=== PATIENT | female | born 1995 | race African-American/Black ===

== ENCOUNTER 2019-06-21 22:42 | Inpatient (IN) | payer OTHER ==
[~2019-06-21] VITALS: Ht 152.4 cm; Wt 145.1 kg
[~2019-06-21 22:42] MED LIST: BACTRIM-DS1 EA ORAL; CIPROFLOXACIN500 M2 ORAL; DOXYCYCLINE MO100 MG ORAL; KETOCONAZOLE120 ML TP; NKM
--- NOTE | 2019-06-21 22:51 | NUR ---
ED Nurse Note: pt walked c/o vaginal bleeding x 3 wks and burning sensation when urinating. Pt is AO x 4times, VSS, on room air no distress. KARLAD seen Pt at bedside.
[2019-06-21 22:57] VITALS: BP 128/89
--- NOTE | 2019-06-21 23:14 | Emergency Room Report ---
History of Present Illness General Chief Complaint: Vaginal Source: Patient Present Illness HPI This is a 23-year-old female with history of severe anemia secondary to dysfunctional uterine bleeding. She had blood transfusion several times. Latest was 2 months ago. She has heavy bleeding for last 2 to 3 weeks. Passing clots. Also with some dysuria for the last few days. She had ultrasound in the past that was negative for fibroids. She had a ruptured ovarian cyst in the past. She refused to take control pill because she "does not believe in it." No pain. Has cramps. Similar symptom in the past. Does complain of some weakness with walking. Allergies: Coded Allergies: No Known Allergies (Unverified , 02/28/14) Patient History Past Medical History: see triage record, old chart reviewed Past Surgical History: none Pertinent Family History: none Social History: Denies: smoking Last Menstrual Period: unk Now: No Immunizations: other Reviewed Nursing Documentation: PMH: Agreed; PSxH: Agreed Nursing Documentation-PMH Past Medical History: No Stated History Hx Cardiac Problems: No Hx Cancer: No Hx Gastrointestinal Problems: No Hx Neurological Problems: No Review of Systems Constitutional: Reports: weakness Eye: Denies: eye pain, blurred vision ENT: Denies: ear pain, nose congestion, throat swelling Respiratory: Denies: cough, shortness of breath Cardiovascular: Denies: chest pain, palpitations Gastrointestinal: Denies: abdominal pain, diarrhea, nausea, vomiting Genitourinary: Reports: vag bleed/dc Musculoskeletal: Denies: back pain, joint pain Skin: Denies: rash Neurological: Denies: headache, numbness Endocrine: Denies: increased thirst, increased urine Hematologic/Lymphatic: Denies: easy bruising All Other Systems: negative except mentioned in HPI Physical Exam Vital Signs Date Time Temp Pulse Resp B/P (MAP) Pulse Ox O2 Delivery O2 Flow Rate FiO2 06/21/19 22:44 99.9 98 18 119/71 (87) 96 Room Air Vitals normal Sp02 EP Interpretation: reviewed, normal General Appearance: well appearing, no apparent distress, alert, obese Head: normocephalic, atraumatic Eyes: bilateral eye PERRL, bilateral eye EOMI, bilateral eye conjunctivae pale ENT: hearing grossly normal, normal pharynx Neck: full range of motion, supple, no meningismus Respiratory: chest non-tender, lungs clear, normal breath sounds Cardiovascular #1: regular rate, rhythm, no murmur Gastrointestinal: normal bowel sounds, non tender, no mass, no organomegaly, no bruit, non-distended Musculoskeletal: back normal, gait/station normal, normal range of motion Psychiatric: mood/affect normal Procedures Critical Care Time Critical Care Time Critical care is mandated in this patient who presented with severe anemia requiring blood transfusion. Patient require my urgent intervention to attenuate the risks of metabolic collapse which may lead to cardiovascular collapse and . Critical care time is 35 minutes excluding any reportable procedure. Critical care time included evaluation, multiple reevaluation, looking at old charts, interpreting laboratory and diagnostic data, discussing case with patient and family and consultants, and charting. Medical Decision Making Diagnostic Impression: Primary Impression: Anemia Qualified Codes: D50.0 - Iron deficiency anemia secondary to blood loss ( chronic) Additional Impressions: Menorrhagia Qualified Codes: N92.1 - Excessive and frequent menstruation with irregular cycle Dysfunctional uterine bleeding ER Course Patient with severe anemia secondary to dysfunction urinating and menorrhagia. She has been transfused several times in the past. When I discussed being on control pills, she said she does not believe in them. She said that no evidence of any fibroids on several ultrasounds. Most recently 2 months ago at [facility]. Vital signs are stable but she will need blood transfusion. No evidence of any active bleeding than vaginal bleeding. I contacted Dr. Dawkins for admission. Rhythm Strip Diag. Results EP Interpretation: yes Rate: 97 Rhythm: NSR, no PVC's, no ectopy Last Vital Signs Date Time Temp Pulse Resp B/P (MAP) Pulse Ox O2 Delivery O2 Flow Rate FiO2 06/21/19 22:57 98.9 89 18 128/89 98 Room Air Status: improved Disposition: ADMITTED INPATIENT Condition: Serious Referrals: NON PHYSICIAN (PCP) Yonny Simeon MD Jun 21, 2019 23:14
--- NOTE | 2019-06-21 23:30 | NUR ---
ED Nurse Note: Blood sample sent to lab.
[2019-06-21 23:52] LABS: ANION GAP 6 mmol/L (5-15); BLOOD UREA NITROGEN 10 mg/dL (7-18); CALCIUM 8.3 MG/DL (8.5-10.1); CARBON DIOXIDE 26 MMOL/L (21-32); CHLORIDE 105 MMOL/L (98-107); CREATININE 0.9 MG/DL (0.55-1.30); POTASSIUM 3.8 MMOL/L (3.5-5.1); SODIUM 137 MMOL/L (136-145)
[2019-06-21 23:53] LABS: HEMATOCRIT 18.2 % (37.0-47.0); MEAN CORPUSCULAR VOLUME 69 FL (80-99); PLATELET COUNT 441 K/UL (150-450); RED BLOOD COUNT 2.63 M/UL (4.20-5.40); RED CELL DISTRIBUTION WIDTH 16.1 % (11.6-14.8); WHITE BLOOD COUNT 13.4 K/UL (4.8-10.8)
[2019-06-21 23:59] LABS: HEMOGLOBIN 5.7 G/DL (12.0-16.0)
--- NOTE | 2019-06-22 00:37 | NUR ---
ED Nurse Note: Snack food provided.
--- NOTE | 2019-06-22 00:59 | NUR ---
ED Nurse Note: Urine sample sent to lab.
--- NOTE | 2019-06-22 01:04 | NUR ---
ED Nurse Note: Blood transfusion started, Pt VSS.
[2019-06-22 01:05] VITALS: BP 129/65
[2019-06-22 01:06] LABS: BILIRUBIN, URINE NEGATIVE (NEGATIVE); GLUCOSE, URINE (UA) NEGATIVE (NEGATIVE); KETONES,URINE 1+ (NEGATIVE); NITRITE,URINE POSITIVE (NEGATIVE); PH,URINE 5 (4.5-8.0); PROTEIN,URINE 3+ (NEGATIVE); UROBILINOGEN,URINE NORMAL MG/DL (0.0-1.0)
--- NOTE | 2019-06-22 01:15 | NUR ---
ED Nurse Note: Report given to floor RN Samm Pt belongings and skin condition report to RN. Pt will admit room 319-1 after 1st unit RBC transfusion done.
[2019-06-22 01:19] VITALS: BP 99/57
[2019-06-22 01:20] LABS: APPEARANCE,URINE CLOUDY; COLOR,URINE RED; LEUKOCYTE ESTERASE ,URINE 1+ (NEGATIVE)
[2019-06-22 02:16] VITALS: BP 106/61
--- NOTE | 2019-06-22 02:19 | NUR ---
ED Nurse Note: Pt admit room 319-1, 1st blood transfusion still going on, 40% remain. Pt and bedside report given to floor RN.
[2019-06-22 04:00] VITALS: BP 96/62
--- NOTE | 2019-06-22 07:34 | NUR ---
HAND-OFF: Report given to KAYLI Beckford. Patient resting in stable condition.
--- NOTE | 2019-06-22 07:45 | NUR ---
NURSE NOTES: Received report from KAYLI Quijano. Rounding done with outgoing nurse. Pt asleep and 2nd unit of blood transfusion is running at this time. Bed in lowest position, call light within reach. Will continue to monitior.
[2019-06-22] MEDS ORDERED: Miralax 17gm pkt ORAL PRN (08:00)
[2019-06-22] MEDS ORDERED: Zolpidem 5mg tab ORAL PRN (08:00)
[2019-06-22] MEDS ORDERED: LORazepam Inj 2mg/ml 1ml IV PRN (08:00)
[2019-06-22] MEDS ORDERED: Morphine Sulfate 2mg/ml Inj(IV/IM USE ONLY) IVP PRN (08:00)
[2019-06-22 08:10] VITALS: BP 104/59
--- NOTE | 2019-06-22 09:37 | NUR ---
*-* NO INSURANCE INFORMTION IN THE BAR UNABLE TO SEND CLINICALS OR REVIEWS *-*
--- NOTE | 2019-06-22 10:46 | NUR ---
NURSE NOTES: Patient stat "I feels better after blood transfusion, I want to leave right now. Remove IV right now so I can go home". Dr. Dawkins was notified and said we need to have CBC results before pt goes home. Explained that we need CBC results before pt goes home but pt still wants to leave right away.
--- NOTE | 2019-06-22 11:00 | NUR ---
NURSE NOTES: Patient signed AMA form. Removed IV access and arm band. Explained pt go to ER if she has continent vaginal bleeding. Verbalized understanding. Discharged by herself in stable condition.
[2019-06-22 11:27] LABS: ANION GAP 9 mmol/L (5-15); BLOOD UREA NITROGEN 8 mg/dL (7-18); CALCIUM 8.3 MG/DL (8.5-10.1); CARBON DIOXIDE 24 MMOL/L (21-32); CHLORIDE 108 MMOL/L (98-107); CREATININE 0.8 MG/DL (0.55-1.30); POTASSIUM 4.1 MMOL/L (3.5-5.1); SODIUM 140 MMOL/L (136-145)
[2019-06-22 11:31] LABS: HEMATOCRIT 23.9 % (37.0-47.0); HEMOGLOBIN 7.5 G/DL (12.0-16.0); MEAN CORPUSCULAR VOLUME 75 FL (80-99); PLATELET COUNT 397 K/UL (150-450); RED CELL DISTRIBUTION WIDTH 17.9 % (11.6-14.8); WHITE BLOOD COUNT 11.5 K/UL (4.8-10.8)
--- NOTE | 2019-06-22 13:03 | NUR ---
INSURANCE CLINICALS FAXED TO [facility] NCM: MOLLY P- [phone] F- [phone]....REVIEW/CLINICAL
--- NOTE | 2019-06-22 13:04 | NUR ---
CASE MANAGEMENT: INITIAL REVIEW 23 YO F PRESENTED TO OUR ED FROM HOME CC: VAGINAL BLEEDING. VAGINAL BURNING SENSATION ON URINATION. PMHx: NONE STATED SI:ANEMIA. BLOOD TRANSFUSION. T 99.9 HR 98 RR 18 B/P 119/71 SATS 96% ON RA WBC 13.4 HGB 5.7 HCT 18.2 GLU 109 CA 8.3 UA (+UTI) IS: NS BOLUS X1 PATIENT ADMITTED TO MED/SURG 06/21/2019 @ 0740 DCP: PATIENT TO BE DISCHARGED TO HOME ONCE MEDICALLY CLEARED. PLAN OF CARE: TRANSFUSE Addendum: 06/22/19 at 1316 by Carlee Valdez CM INTERQUAL MET
--- NOTE | 2019-06-22 15:55 | Consultation ---
History of Present Illness General Chief Complaint: Vaginal Present Illness Allergies: Coded Allergies: No Known Allergies (Unverified , 02/28/14) Medication History Scheduled No Known Medications* (NKM - No Known Medications*), 0 ., (Reported) Patient History Healthcare decision maker Resuscitation status Full Code Advanced Directive on File Physical Exam Last 24 Hour Vital Signs Date Time Temp Pulse Resp B/P (MAP) Pulse Ox O2 Delivery O2 Flow Rate FiO2 06/22/19 09:00 Room Air 06/22/19 08:10 98.1 80 20 104/59 (74) 99 06/22/19 04:00 97.9 82 18 96/62 (73) 100 06/22/19 02:38 Room Air 06/22/19 02:17 98.5 97 18 99/57 100 Room Air 06/22/19 02:16 98.0 98 17 106/61 (76) 96 06/22/19 01:19 98.5 97 18 99/57 100 Room Air 06/22/19 01:05 97.7 101 18 129/65 100 Room Air 06/21/19 22:57 98.9 89 18 128/89 98 Room Air 06/21/19 22:44 99.9 98 18 119/71 (87) 96 Room Air Intake and Output 06/21/19 06/22/19 19:00 07:00 Intake Total 1070 ml Balance 1070 ml Intake Oral 370 ml Blood Product 700 ml # Voids 2 # Bowel Movements 1 # Sanitary Pads 1 Laboratory Tests Test 06/21/19 23:25 06/22/19 00:50 06/22/19 10:30 White Blood Count 13.4 K/UL (4.8-10.8) H 11.5 K/UL (4.8-10.8) H Red Blood Count 2.63 M/UL (4.20-5.40) L 3.20 M/UL (4.20-5.40) L Hemoglobin 5.7 G/DL (12.0-16.0) *L 7.5 G/DL (12.0-16.0) #L Hematocrit 18.2 % (37.0-47.0) L 23.9 % (37.0-47.0) #L Mean Corpuscular Volume 69 FL (80-99) L 75 FL (80-99) #L Mean Corpuscular Hemoglobin 21.6 PG (27.0-31.0) L 23.3 PG (27.0-31.0) L Mean Corpuscular Hemoglobin Concent 31.2 G/DL (32.0-36.0) L 31.2 G/DL (32.0-36.0) L Red Cell Distribution Width 16.1 % (11.6-14.8) H 17.9 % (11.6-14.8) H Platelet Count 441 K/UL (150-450) 397 K/UL (150-450) Mean Platelet Volume 6.4 FL (6.5-10.1) L 6.6 FL (6.5-10.1) Neutrophils (%) (Auto) % (45.0-75.0) % (45.0-75.0) Lymphocytes (%) (Auto) % (20.0-45.0) % (20.0-45.0) Monocytes (%) (Auto) % (1.0-10.0) % (1.0-10.0) Eosinophils (%) (Auto) % (0.0-3.0) % (0.0-3.0) Basophils (%) (Auto) % (0.0-2.0) % (0.0-2.0) Sodium Level 137 MMOL/L (136-145) 140 MMOL/L (136-145) Potassium Level 3.8 MMOL/L (3.5-5.1) 4.1 MMOL/L (3.5-5.1) Chloride Level 105 MMOL/L (98-107) 108 MMOL/L (98-107) H Carbon Dioxide Level 26 MMOL/L (21-32) 24 MMOL/L (21-32) Anion Gap 6 mmol/L (5-15) 9 mmol/L (5-15) Blood Urea Nitrogen 10 mg/dL (7-18) 8 mg/dL (7-18) Creatinine 0.9 MG/DL (0.55-1.30) 0.8 MG/DL (0.55-1.30) Estimat Glomerular Filtration Rate > 60 mL/min (>60) > 60 mL/min (>60) Glucose Level 109 MG/DL (74-106) H 96 MG/DL (74-106) Calcium Level 8.3 MG/DL (8.5-10.1) L 8.3 MG/DL (8.5-10.1) L Urine Color Red Urine Appearance Cloudy Urine pH 5 (4.5-8.0) Urine Specific [place] 1.020 (1.005-1.035) Urine Protein 3+ (NEGATIVE) H Urine Glucose (UA) Negative (NEGATIVE) Urine Ketones 1+ (NEGATIVE) H Urine Blood 5+ (NEGATIVE) H Urine Nitrite Positive (NEGATIVE) H Urine Bilirubin Negative (NEGATIVE) Urine Urobilinogen Normal MG/DL (0.0-1.0) Urine Leukocyte Esterase 1+ (NEGATIVE) H Urine RBC Tntc /HPF (0 - 2) H Urine WBC 2-4 /HPF (0 - 2) Urine Squamous Epithelial Cells Few /LPF (NONE/OCC) Urine Bacteria Few /HPF (NONE) Urine HCG, Qualitative Negative (NEGATIVE) Differential Total Cells Counted 100 Neutrophils % (Manual) 77 % (45-75) H Lymphocytes % (Manual) 18 % (20-45) L Monocytes % (Manual) 5 % (1-10) Eosinophils % (Manual) 0 % (0-3) Basophils % (Manual) 0 % (0-2) Band Neutrophils 0 % (0-8) Platelet Estimate Adequate Platelet Morphology Normal Hypochromasia 2+ Anisocytosis 1+ Microcytosis 1+ Height (Feet): 5 Height (Inches): 0.00 Weight (Pounds): 320 Assessment/Plan Assessment/Plan: Hematology Consultation ANIA MD: Elizabeth Dawkins DOS: 06/22/19 Chief Complaint: Vaginal HPI WAS SEEN BEFORE SIGNOUT AMA This is a 23-year-old female with history of severe anemia secondary to dysfunctional uterine bleeding. She had blood transfusion several times. Latest was 2 months ago. She has heavy bleeding for last 2 to 3 weeks. Passing clots. Also with some dysuria for the last few days. She had ultrasound in the past that was negative for fibroids. She had a ruptured ovarian cyst in the past. She refused to take control pill because she "does not believe in it." No pain. Has cramps. Similar symptom in the past. Does complain of some weakness with walking. Coded Allergies: No Known Allergies (Unverified , 02/28/14) Patient History Past Medical History: see triage record, old chart reviewed Past Surgical History: none Pertinent Family History: none Social History: Denies: smoking Last Menstrual Period: unk Now: No Immunizations: other Reviewed Nursing Documentation: PMH: Agreed; PSxH: Agreed Nursing Documentation-PMH Past Medical History: No Stated History Hx Cardiac Problems: No Hx Cancer: No Hx Gastrointestinal Problems: No Hx Neurological Problems: No ROS Constitutional: Reports: weakness Eye: Denies: eye pain, blurred vision ENT: Denies: ear pain, nose congestion, throat swelling Respiratory: Denies: cough, shortness of breath Cardiovascular: Denies: chest pain, palpitations Gastrointestinal: Denies: abdominal pain, diarrhea, nausea, vomiting Genitourinary: Reports: vag bleed/dc Musculoskeletal: Denies: back pain, joint pain Skin: Denies: rash Neurological: Denies: headache, numbness Endocrine: Denies: increased thirst, increased urine Hematologic/Lymphatic: Denies: easy bruising All Other Systems: negative except mentioned in HPI PE Vital Signs Date Time Temp Pulse Resp B/P (MAP) Pulse Ox O2 Delivery O2 Flow Rate FiO2 06/21/19 22:44 99.9 98 18 119/71 (87) 96 Room Air Objective: PE: Vitals: reviewed General Appearance: A+O x3, NAD HEENT: normocephalic, atraumatic Neck: non-tender, normal alignment Respiratory/Chest: chest wall non-tender, lungs clear Cardiovascular/Chest: normal peripheral pulses, normal rate Abdomen: normal bowel sounds, non tender Extremities: normal range of motion Assessment and Recs # Anemia of iron deficiency, due to heavy menstrual periods --> will/have begun on iv iron and continue x 5 doses (patient left before it was started) --> occult blood is + (review this to make sure +). If it is +, then consider Gi evaluation with egd/colo, appreciate recs --> hgb goal is >7, transfuse as needed --> trend CBC daily to make sure no major acute drop --> GYNO followup outpatient --> given 2 units today in the am # Menorrhagia refusing ocps --> recommend wire fence builder eval # Dysfunctional uterine bleeding ==> again needs wire fence builder eval, hmo approval The timing of this note does not necessarily reflect the time of the patient was seen. Greatly appreciate consultation! Neptali Banuelos MD Jun 22, 2019 15:55
--- NOTE | 2019-06-23 12:47 | Discharge Summary ---
Discharge Summary Discharge Summary _ Chest summary DATE OF ADMISSION: 06/21/2019 DATE OF DISCHARGE: 06/22/2019 Patient left AGAINST MEDICAL ADVICE REASON FOR ADMISSION: 23 years old female with past medical history of severe anemia, due to dysfunctional uterine bleeding, status post blood transfusion in the past, presented due to heavy bleeding for the last 2 to 3 weeks. Patient reported passing clots. Patient also reported dysuria for the last few days. Patient reported that she had an ultrasound in the past, which revealed no evidence of fibroids. Patient reported ruptured ovarian cyst in the past. Patient declined in the past to take control pills, since she does not believe in them. She denied abdominal pain but reported moderate intensity cramps. Patient had similar symptoms in the past. Upon evaluation patient had low-grade fever 99.9. Otherwise she was hemodynamically stable. Laboratory work-up revealed mild leukocytosis WBC 13.4. Hemoglobin 5.7, hematocrit 18.2 MCV 69. Platelet count 441. Stable electrolytes and renal parameters. Urinalysis revealed +3 protein, +5 blood, +1 leukocyte esterase, no pyuria, few bacteria. Urine test was negative. In emergency department patient typed and crossed and admitted for blood transfusion . No evidence of active bleeding other than vaginal bleeding CONSULTANTS: statement clerks manager/oncologist Dr. Banuelos [facility] COURSE: Patient admitted to medical surgical floor. Patient was transfused with 2 units of packed red blood cells. Symptomatic treatment provided. Pain management was addressed. Bowel regimen instituted. Antiemetic provided as needed. After 2 units of packed red blood cells in the morning hemoglobin up to 7.5, hematocrit 23.9. Forms Builder seen and evaluated the patient. Per statement clerks manager, patient had anemia of iron deficiency, likely due to heavy menstrual periods. Patient refused oral contraceptives in the past, as recommended by STORE ADMINISTRATOR. Patient will need STORE ADMINISTRATOR evaluation after HMO approval for the dysfunctional uterine bleeding . Patient felt better and decided to leave AGAINST MEDICAL ADVICE. The risks and consequences of signing AGAINST MEDICAL ADVICE were discussed with patient in detail. Patient verbalized understanding, nevertheless signed AMA form and left. FINAL DIAGNOSES: Severe anemia of acute blood loss requiring blood transfusion , status post 2 units PRBC Anemia of iron deficiency Menorrhagia Dysfunctional uterine bleeding I have been assigned to dictate discharge summary for this account. I was not involved in the patient's management. Amanda Benavides NP Jun 23, 2019 12:47
--- NOTE | 2019-06-23 16:56 | History and Physical Report ---
DATE OF ADMISSION: 06/21/2019 TIME SEEN: 8 a.m. CONSULTANTS: 1. Marla Johns M.D. 2. Dr. Banuelos. CHIEF COMPLAINT: Severe anemia, weakness, dizziness, menorrhagia. BRIEF HISTORY: This is a 23-year-old female, who lives at home with history of menorrhagia apparently 3 weeks ago started having vaginal bleed She became dizzy and weak yesterday, came to [place], diagnosed with anemia, menorrhagia, dizzy, weakness with anemia 5.7 and admitted to medical floor. She was transfused. The patient currently feeling a little better, in bed, no complaint. REVIEW OF SYSTEMS: No chest pain. No shortness of breath. No nausea, vomiting, or diarrhea. PAST MEDICAL HISTORY: 1. Menorrhagia. 2. Anemia. PAST SURGICAL HISTORY: None. MEDICATIONS: Include Tylenol, morphine, polyethylene glycol, Zofran, lorazepam, zolpidem. ALLERGIES: Denies. SOCIAL HISTORY: No smoking. No alcohol. No intravenous drug abuse. FAMILY HISTORY: Noncontributory. PHYSICAL EXAMINATION: GENERAL: Calm in bed, oriented x3, no acute distress. VITAL SIGNS: Temperature 97 degrees, pulse 82, respiratory rate 18, blood pressure 96/62. CARDIOVASCULAR: No murmur. LUNGS: Distant and clear. ABDOMEN: Positive bowel sounds. Nontender. Nondistended. EXTREMITIES: No cyanosis, clubbing, or edema. NEUROLOGIC: The patient moves all extremities slightly weak. LABORATORY AND DIAGNOSTIC DATA: White count 13.4, hemoglobin and hematocrit 5.7 and 18, platelets 441. BMP shows glucose 109, otherwise normal. Calcium 8.3, otherwise normal BMP. UA showed positive nitrite, 1+ leukocyte esterase. ASSESSMENT: 1. Anemia. 2. Menorrhagia. 3. Dizziness. 4. Weakness. 5. UTI. PLAN: 1. Continue premeds. 2. Transfuse. 3. CBC and BMP in the morning. 4. Antibiotics per Infectious Diseases. 5. We will continue to follow the patient. Tony Dawkins D.O. DR: Abel JOB#: [id number] CC:
== END 2019-06-22 11:32 | disposition left against medical advice (07) | DRG 663 ==
LOC: EMR 23:00 → 3E 23:28 → EDBEDREQ 06-22 00:50 → 3E 06-22 03:54
PROC: 30233N1 Transfusion of Nonautologous Red Blood Cells into Peripheral Vein, Percutaneous Approach (ICD-10-PCS; principal; 2019-06-22)
DX: D62 Acute posthemorrhagic anemia (principal); D50.9 Iron deficiency anemia, unspecified; N92.0 Excessive and frequent menstruation with regular cycle; N93.8 Other specified abnormal uterine and vaginal bleeding
CPT/HCPCS: 36415; 80048; 81003; 81025; 85007; 85025; 86850; 86900; 86901; 86920; 96360; 99291

== ENCOUNTER 2019-07-04 10:45 | Inpatient (IN) | payer OTHER ==
[~2019-07-04] VITALS: Ht 152.4 cm; Wt 163.3 kg
--- NOTE | 2019-07-04 11:10 | NUR ---
ED Nurse Note:pt. came due to heavy vaginal bleeding for afew days, c/o headache pain
[2019-07-04 11:25] VITALS: BP 124/66
--- NOTE | 2019-07-04 11:25 | Emergency Room Report ---
History of Present Illness General Chief Complaint: Vaginal Source: Patient, Medical Record Present Illness HPI Patient was recently admitted and transfused packed red blood cells secondary to [place] menorrhagia Patient reports that after her discharge she was in [place] and was not able to follow with primary physician over the past several days she has continued to feel more weak She has also continued to have vaginal bleeding and presents for further evaluation Patient had upon discharge refused any other medications such as control pills and reports that this might be in consideration at this time Denies any abdominal pain denies any neck pain or photophobia denies any other trauma Allergies: Coded Allergies: No Known Allergies (Unverified , 02/28/14) Patient History Past Medical History: see triage record Last Menstrual Period: on period Reviewed Nursing Documentation: PMH: Agreed; PSxH: Agreed Nursing Documentation-PMH Past Medical History: No Stated History Hx Cardiac Problems: No Hx Hypertension: No Hx Pacemaker: No Hx Asthma: No Hx COPD: No Hx Diabetes: No Hx Cancer: No Hx Gastrointestinal Problems: No Hx Dialysis: No History Of Psychiatric Problem: No Hx Neurological Problems: No Hx Cerebrovascular Accident: No Hx Seizures: No Review of Systems All Other Systems: negative except mentioned in HPI Physical Exam Vital Signs Date Time Temp Pulse Resp B/P (MAP) Pulse Ox O2 Delivery O2 Flow Rate FiO2 07/04/19 10:58 99.7 109 19 124/66 (85) 99 Room Air Sp02 EP Interpretation: reviewed, normal General Appearance: well appearing, no apparent distress Head: normocephalic, atraumatic Eyes: bilateral eye PERRL, bilateral eye EOMI ENT: hearing grossly normal, normal pharynx, TMs + canals normal, uvula midline Neck: full range of motion, supple, no meningismus, no bony tend Respiratory: lungs clear, normal breath sounds, no rhonchi, no respiratory distress, no retraction, no accessory muscle use Cardiovascular #1: normal peripheral pulses, regular rate, rhythm, no edema, no gallop, no JVD, no murmur Gastrointestinal: normal bowel sounds, non tender, soft, no mass, no organomegaly, non-distended, no guarding, no hernia, no pulsatile mass, no rebound Genitourinary: no CVA tenderness Musculoskeletal: normal inspection Neurologic: oriented x3, responsive, digital intern III-XII nml as tested, motor strength/ tone normal, sensory intact Psychiatric: mood/affect normal Skin: no rash Lymphatic: normal inspection, no adenopathy Medical Decision Making Diagnostic Impression: Primary Impression: Anemia Additional Impression: Vaginal bleeding Labs Test 07/04/19 11:24 07/04/19 11:25 White Blood Count 11.8 K/UL (4.8-10.8) Red Blood Count 1.74 M/UL (4.20-5.40) Hemoglobin 3.5 G/DL (12.0-16.0) Hematocrit 12.0 % (37.0-47.0) Mean Corpuscular Volume 69 FL (80-99) Mean Corpuscular Hemoglobin 20.1 PG (27.0-31.0) Mean Corpuscular Hemoglobin Concent 29.2 G/DL (32.0-36.0) Red Cell Distribution Width 21.6 % (11.6-14.8) Platelet Count 439 K/UL (150-450) Mean Platelet Volume 6.6 FL (6.5-10.1) Neutrophils (%) (Auto) % (45.0-75.0) Lymphocytes (%) (Auto) % (20.0-45.0) Monocytes (%) (Auto) % (1.0-10.0) Eosinophils (%) (Auto) % (0.0-3.0) Basophils (%) (Auto) % (0.0-2.0) Differential Total Cells Counted 100 Neutrophils % (Manual) 72 % (45-75) Lymphocytes % (Manual) 24 % (20-45) Monocytes % (Manual) 4 % (1-10) Eosinophils % (Manual) 0 % (0-3) Basophils % (Manual) 0 % (0-2) Band Neutrophils 0 % (0-8) Platelet Estimate Adequate Hypochromasia 4+ Anisocytosis 3+ Microcytosis 4+ Sodium Level 141 MMOL/L (136-145) Potassium Level 4.3 MMOL/L (3.5-5.1) Chloride Level 107 MMOL/L (98-107) Carbon Dioxide Level 26 MMOL/L (21-32) Anion Gap 8 mmol/L (5-15) Blood Urea Nitrogen 11 mg/dL (7-18) Creatinine 1.0 MG/DL (0.55-1.30) Estimat Glomerular Filtration Rate > 60 mL/min (>60) Glucose Level 116 MG/DL (74-106) Calcium Level 8.4 MG/DL (8.5-10.1) Last Vital Signs Date Time Temp Pulse Resp B/P (MAP) Pulse Ox O2 Delivery O2 Flow Rate FiO2 07/04/19 10:58 99.7 109 19 124/66 (85) 99 Room Air Disposition: ADMITTED INPATIENT Condition: Serious Referrals: [facility],REFERRING (PCP) Mariano Gillespie DO Jul 04, 2019 11:25
--- NOTE | 2019-07-04 11:27 | NUR ---
ED Nurse Note:blood sent to labs pt. placed on the monitor
[2019-07-04 11:43] LABS: ANION GAP 8 mmol/L (5-15); BLOOD UREA NITROGEN 11 mg/dL (7-18); CALCIUM 8.4 MG/DL (8.5-10.1); CARBON DIOXIDE 26 MMOL/L (21-32); CHLORIDE 107 MMOL/L (98-107); POTASSIUM 4.3 MMOL/L (3.5-5.1); SODIUM 141 MMOL/L (136-145)
[2019-07-04 12:20] LABS: MEAN CORPUSCULAR VOLUME 69 FL (80-99); PLATELET COUNT 439 K/UL (150-450); RED BLOOD COUNT 1.74 M/UL (4.20-5.40); RED CELL DISTRIBUTION WIDTH 21.6 % (11.6-14.8); WHITE BLOOD COUNT 11.8 K/UL (4.8-10.8)
[2019-07-04 12:21] LABS: HEMOGLOBIN 3.5 G/DL (12.0-16.0)
--- NOTE | 2019-07-04 13:05 | NUR ---
ED Nurse Note:started blood transfusion, consent signed by pt. ,pt. tolerating well
--- NOTE | 2019-07-04 13:20 | NUR ---
ED Nurse Note:rechecked VS, no adverse reaction observed
[2019-07-04 13:31] VITALS: BP 107/55
[2019-07-04 14:42] VITALS: BP 106/64
--- NOTE | 2019-07-04 15:19 | NUR ---
ED Nurse Note:called report to SDU- given to ARNULFO
--- NOTE | 2019-07-04 15:30 | NUR ---
NURSE NOTES: Received pt ,a new admission from ER,awake alert oriented in no acute resp distress in RA denies any c/o chest pain or discomfort S-tach on the monitor ,IV site to RW intact with ongoing blood transfusion PRBC ist unit,skin warm and dry, SR upx2 call de la fuente at bedside HOB elevated,bed lock in lowest position ,will continue with plans of care.
--- NOTE | 2019-07-04 16:00 | NUR ---
NURSE NOTES: ongoing blood transfusion completed,V/S monitored stable.
[2019-07-04 16:12] VITALS: BP 107/51
--- NOTE | 2019-07-04 16:40 | NUR ---
NURSE NOTES: transfused 2nd unit of PRBC,tolerating well,pt stable no blood transfusion reaction presented.
[2019-07-04] MEDS ORDERED: Zolpidem 5mg tab ORAL PRN (18:30)
[2019-07-04] MEDS ORDERED: Morphine Sulfate 2mg/ml Inj(IV/IM USE ONLY) IVP PRN (18:30)
[2019-07-04] MEDS ORDERED: LORazepam Inj 2mg/ml 1ml IV PRN (18:30)
[2019-07-04] MEDS ORDERED: Miralax 17gm pkt ORAL PRN (18:30)
--- NOTE | 2019-07-04 19:25 | NUR ---
NURSE NOTES: Received patient from Angeles Baker RN. Will continue plan of care.
--- NOTE | 2019-07-04 19:30 | NUR ---
NURSE NOTES: Ongoing blood transfusion completed,V/S stable no blood transfusion reaction noted,no complaints made.
--- NOTE | 2019-07-04 19:35 | NUR ---
HAND-OFF: Report given to Lisseth Abernathy RN.Called Dr Dawkins for Admission orders awaiting return of call..
[2019-07-04 20:00] VITALS: BP 117/60
--- NOTE | 2019-07-04 22:49 | NUR ---
AMA: PATIENT DECIDED TO LEAVE AGAINST MEDICAL ADVISE FROM PROVIDER. IT WAS EXPLAINED TO THE PATIENT THE RISK OF LEAVING AGAINST MEDICAL ADVICE. HOWEVER, PATIENT IS ALERT AND ORIENTED TO MAKE RATIONAL DECISIONS FOR HERSELF. PATIENTS VS ARE STABLE AND PATIENT IS AMBULATORY WITH GOOD GAIT. AL BELONGINGS FOR PATIENT WERE ACCOUNTED FOR. MD WAS CALLED ABOUT PATIENTS AMA STATUS. SEE AMA FORM.
--- NOTE | 2019-07-05 08:39 | NUR ---
CASE MANAGEMENT: CM review and clinical information (face sheet/ ER MD notes) faxed to [facility] UM Dept @ [phone]
--- NOTE | 2019-07-05 15:17 | Cardiology Report ---
APPROVED REPORT EKG Measurement Heart [id number] Normal sinus rhythm Right atrial enlargement Borderline ECG
--- NOTE | 2019-07-06 08:01 | Discharge Summary ---
Discharge Summary Discharge Summary _ DATE OF ADMISSION: 07/04/2019 DATE OF DISCHARGE: 07/04/2019 Patient left AGAINST MEDICAL ADVICE REASON FOR ADMISSION: 23 years old female with recent admission for blood transfusion secondary to metromenorrhagia, presented to emergency room for further evaluation. According to patient, she was in [place] and was unable to follow-up with her primary physician. For the past several days she had continuously felt more weak. She also continued to have vaginal bleeding and presented for further evaluation. Vital signs revealed tachycardia. Laboratory work-up revealed mild leukocytosis, hemoglobin 3.5, hematocrit 12, stable electrolytes and renal parameters. Patient admitted for blood transfusion. HOSPITAL COURSE: Patient admitted to medical surgical floor. Patient started on the IV fluids. Patient typed, crossed and transfused with 3 units of packed red blood cells. Pulse oximetry was stable on room air. After transfusion of 3 units of packed red blood cells patient felt better and decided to leave AGAINST MEDICAL ADVICE. The risks and consequences of signing AGAINST MEDICAL ADVICE were discussed with patient in detail. Patient verbalized understanding, nevertheless signed AMA form and left. FINAL DIAGNOSES: Anemia Vaginal bleeding I have been assigned to dictate discharge summary for this account. I was not involved in the patient's management. Amanda Benavides NP Jul 06, 2019 08:01
== END 2019-07-04 23:06 | disposition left against medical advice (07) | DRG 663 ==
LOC: EMR 11:13 → 2E 12:31 → EDBEDREQ 13:29 → 2W 15:25
PROC: 30233N1 Transfusion of Nonautologous Red Blood Cells into Peripheral Vein, Percutaneous Approach (ICD-10-PCS; principal; 2019-07-04)
DX: D50.0 Iron deficiency anemia secondary to blood loss (chronic) (principal); N93.9 Abnormal uterine and vaginal bleeding, unspecified
CPT/HCPCS: 36415; 80048; 85007; 85025; 86850; 86900; 86901; 86920; 87081; 93005; 99285

== ENCOUNTER 2020-04-09 20:32 | Emergency (ER) | payer OTHER ==
[~2020-04-09] VITALS: Ht 152.4 cm; Wt 136.1 kg
[~2020-04-09 20:32] MED LIST changes: +[UNRECOGNIZED DRUG - OTHER] PO
--- NOTE | 2020-04-09 20:50 | Emergency Room Report ---
History of Present Illness General Chief Complaint: Abnormal Labs Source: Patient (Lenka Kelley M.D.) Present Illness HPI Patient is a 24-year-old female past medical history of obesity, dysfunctional uterine bleeding and anemia requiring blood transfusions in the past who presents to the ER saying that she feels like she needs a blood transfusion. Patient states that she is supposed to be on control to help her dysfunctional uterine bleeding but has stopped taking it because she has not felt well on it. She states that her hydraulic technician is at [place]. Patient complains of bleeding for the past month. Patient complains of generalized weakness and fatigue. She complains of exertional shortness of breath and chest pain. She states that all of the symptoms are consistent with her prior history of anemia when she required a blood transfusion. She denies any abdominal pain, fever or chills. She states that she feels cold when it is warm outside. (Lenka Kelley M.D.) Allergies: Coded Allergies: No Known Allergies (Unverified , 02/28/14) COVID-19 Screening Contact w/high risk pt: No Recent Travel to affected area: No Experienced COVID-19 symptoms?: No COVID-19 Testing performed RIBBON WEAVER: No (Lenka Kelley M.D.) Patient History Last Menstrual Period: current Reviewed Nursing Documentation: PMH: Agreed; PSxH: Agreed (Lenka Kelley M.D.) Nursing Documentation-PMH Hx Cardiac Problems: No - anemia Hx Hypertension: No Hx Pacemaker: No Hx Asthma: No Hx COPD: No Hx Diabetes: No Hx Cancer: No Hx Gastrointestinal Problems: No Hx Dialysis: No Hx Neurological Problems: No Hx Cerebrovascular Accident: No Hx Seizures: No (Lenka Kelley M.D.) Review of Systems All Other Systems: negative except mentioned in HPI (Lenka Kelley M.D.) Physical Exam Vital Signs Date Time Temp Pulse Resp B/P (MAP) Pulse Ox O2 Delivery O2 Flow Rate FiO2 04/09/20 20:35 99.0 100 16 112/63 (79) 99 Room Air Sp02 EP Interpretation: reviewed, normal General Appearance: no apparent distress, alert, GCS 15, non-toxic Head: normocephalic, atraumatic Eyes: bilateral eye normal inspection, bilateral eye PERRL, bilateral eye conjunctivae pale ENT: hearing grossly normal, normal pharynx, no angioedema, normal voice Neck: full range of motion, supple/symm/no masses Respiratory: chest non-tender, lungs clear, normal breath sounds, speaking full sentences Cardiovascular #1: tachycardia Cardiovascular #2: 2+ carotid (R), 2+ carotid (L) Gastrointestinal: normal bowel sounds, non tender, soft, non-distended, no guarding, no rebound Rectal: deferred Genitourinary: normal inspection, no CVA tenderness Musculoskeletal: normal range of motion Neurologic: alert, motor strength/tone normal, oriented x3, sensory intact, responsive, speech normal Psychiatric: no suicidal/homicidal ideation Skin: no rash Lymphatic: no adenopathy (Lenka Kelley M.D.) Procedures Critical Care Time Critical Care Time Total critical care time: Approximately 35 minutes. Due to a high probability of clinically significant, life threatening deterioration, the patient required my highest level of preparedness to intervene emergently and I personally spent this critical care time directly and personally managing the patient. This critical care time included obtaining a history; examining the patient; pulse oximetry; ordering and review of studies; arranging urgent treatment with development of a management plan; evaluation of patient's response to treatment ; frequent reassessment; and, discussions with other providers.This critical care time was performed to assess and manage the high probability of imminent, life-threatening deterioration that could result in multi-organ failure. It was exclusive of separately billable procedures and treating other patients and teaching time. Please see MDM section and the rest of the note for further information on patient assessment and treatment. (Lenka Kelley M.D.) Medical Decision Making Diagnostic Impression: Primary Impression: Uterine bleeding, dysfunctional Additional Impressions: UTI (urinary tract infection) Qualified Codes: N30.00 - Acute cystitis without hematuria Severe anemia ER Course Patient became very argumentative about her IV placement. She states that the 18-gauge antecubital right that was placed was bothering her. She states that she will only take an IV in her hand. She will only let certain people attempt her IV. Patient became extremely difficult and stated that she wanted to leave. Patient began screaming profanities and stated that she does not want to be admitted and just wants to be kept in the ER for blood transfusion. I explained to her that we do not have an ED observation unit that accommodates such request. Patient has been seen here multiple times for the same problem in the past. Patient has signed out AMA in the past. Patient is noncompliant with her control. Patient now allowing 1 nurse to attempt an IV in her hand. I explained to her that there were other options for IV placement such as an EJ but she is declining. Signed out to . (Lenka Kelley M.D.) ER Course This patient signed out to me. She presents with severe anemia secondary to menorrhagia. She is also noncompliant and will not take any control pill or follow-up with hydraulic technician. She has been admitted here a few times and signed out AMA. She had an 18-gauge IV in her antecubital vein but she claimed that it was not functioning and pulled out. She refused to have nursing staff try to get an IV in her. She refused an EJ. She wanted a "specialist" to put an IV in her. Explained to the patient that there is no such dedicated specialists in the ER in the middle the night to put IVs in patient. She wanted to have a specialist called in to put her IV. She is extremely rude and constantly talk over and yelling at me and the nursing staff. She would not let me explained the procedure of what need to be done. She wanted to have a machine that help look for her veins. I try to explain to her that I can use the ultrasound to look for vein and do an IV but she refused. She wanted another doctor to do it. Explained to the patient that I am the only doctor at night. She keeps saying that we are come and do not know what were doing. She said she has been through this since she was 18 and know what she is doing. She said that she would only let a specialist or anyone with experience one chance of putting an IV in her. Explained to the patient that we will admit her to the hospital and so we can get a PICC line in the morning for blood transfusion. Patient told me to "shut the fuck up." She would not let anyone else try an IV on her. She got up and said she would leave and go to another hospital. Her vital signs are stable. At rest her heart rate is in the 90s. She is in no distress even though her anemia is very low. She is competent to make a decision to sign out AGAINST MEDICAL ADVICE. Risk and benefits explained to the patient. (Yonny Simeon MD) Last Vital Signs Date Time Temp Pulse Resp B/P (MAP) Pulse Ox O2 Delivery O2 Flow Rate FiO2 04/09/20 20:35 99.0 100 16 112/63 (79) 99 Room Air (Lenka Kelley M.D.) Disposition: AGAINST MEDICAL ADVICE Condition: Stable Lenka Kelley M.D. Apr 09, 2020 20:50 Yonny Simeon MD Apr 09, 2020 23:00
[2020-04-09 20:54] VITALS: BP 142/70
[2020-04-09 21:13] LABS: APPEARANCE,URINE CLOUDY; BILIRUBIN, URINE NEGATIVE (NEGATIVE); COLOR,URINE RED; GLUCOSE, URINE (UA) NEGATIVE (NEGATIVE); KETONES,URINE 1+ (NEGATIVE); LEUKOCYTE ESTERASE ,URINE 3+ (NEGATIVE); NITRITE,URINE POSITIVE (NEGATIVE); PH,URINE 5 (4.5-8.0); PROTEIN,URINE 3+ (NEGATIVE); UROBILINOGEN,URINE NORMAL MG/DL (0.0-1.0)
[2020-04-09] MEDS: cefTRIAXone 1 GM in NS 55 ML IVPB ONE ×2 (21:44→21:45)
[2020-04-09 22:06] LABS: ANION GAP 8 mmol/L (5-15); BLOOD UREA NITROGEN 9 mg/dL (7-18); CALCIUM 7.9 MG/DL (8.5-10.1); CARBON DIOXIDE 26 MMOL/L (21-32); CHLORIDE 103 MMOL/L (98-107); CREATININE 1.2 MG/DL (0.55-1.30); POTASSIUM 4.5 MMOL/L (3.5-5.1); SODIUM 137 MMOL/L (136-145)
[2020-04-09 22:10] LABS: ALANINE AMINOTRANSFERASE 22 U/L (12-78); ALBUMIN 2.9 G/DL (3.4-5.0); ALBUMIN/GLOBULIN RATIO 0.7 (1.0-2.7); ALKALINE PHOSPHATASE 73 U/L (46-116); ASPARTATE AMINO TRANSFERASE 12 U/L (15-37); BILIRUBIN,TOTAL 0.1 MG/DL (0.2-1.0)
[2020-04-09 22:12] LABS: MEAN CORPUSCULAR VOLUME 60 FL (80-99); PLATELET COUNT 469 K/UL (150-450); RED BLOOD COUNT 2.66 M/UL (4.20-5.40); RED CELL DISTRIBUTION WIDTH 17.6 % (11.6-14.8); WHITE BLOOD COUNT 14.6 K/UL (4.8-10.8)
[2020-04-09 22:13] LABS: HEMOGLOBIN 4.6 G/DL (12.0-16.0)
[2020-04-09] MEDS ORDERED: Levofloxacin 500mg tab ORAL ONE (23:15)
== END 2020-04-09 23:32 | disposition left against medical advice (07) ==
LOC: EMR 20:50
DX: N93.8 Other specified abnormal uterine and vaginal bleeding (principal); N30.00 Acute cystitis without hematuria; D64.9 Anemia, unspecified; R07.9 Chest pain, unspecified; R00.0 Tachycardia, unspecified
CPT/HCPCS: 36415; 80053; 81003; 81025; 83735; 85007; 85025; 85610; 85730; 86850; 86900; 86901; 86920; 87086; 87181; 96360; 96361; J0696; Z7502; 99291